=== PATIENT | female | born 1950 | race Caucasian/White ===

== ENCOUNTER 2017-12-03 07:22 | Emergency (ER) | payer MEDICARE, BC ==
[~2017-12-03] VITALS: Ht 167.6 cm; Wt 67.0 kg
[~2017-12-03 07:22] MED LIST: ATOR10TA PO; COQ-100C2 PO; CYCL1PAK PO; FLUTI110I TOP; TRAM50TA PO
[2017-12-03 07:26] VITALS: BP 150/73; PULSE 78; RESP 16; TEMP 97.2; O2SAT 99
[2017-12-03] MEDS ORDERED: UBID30CA2 PO (08:03)
[2017-12-03] MEDS ORDERED: ATOR10TA15 PO (08:03)
[2017-12-03] MEDS ORDERED: macuguard PO (08:03)
--- NOTE | 2017-12-03 08:05 | PD ---
HPI Chief Complaint: Allergic/Adverse Reaction Time Seen by Provider: 07:52 Travel History International Travel<30 days: No Contact w/Intl Traveler<30days: No Traveled to known affect area: No History of Present Illness HPI Patient is a 67-year-old female who was treated outside clinic for bronchitis and is on day 4 of 5 of prednisone course, she states she is feeling quite jittery and anxious and starting the medication and she feels numbness and tingling in all of her extremities when this happens as well, states she's never had this prior to starting the prednisone and thinks that the prednisone is causing the have the symptoms. Denies any chest pain shortness breath abdominal pain cough congestion nausea vomiting diarrhea or extremity weakness. Symptoms for the past 4 days, context as above, gradually worsening, associated signs symptoms as above. PFSH Past Medical History High Cholesterol: Yes Medical other: Yes ("macular hole") Tetanus Vaccination: < 5 Years Influenza Vaccination: Yes Menopausal: Yes Tubal Ligation: Yes Past Surgical History Other Surgery: Yes (R. & L. LEG VEIN CLOSURE) Social History Alcohol Use: Yes (SOCIALLY) Tobacco Use: No Substance Use: No Allergies-Medications (Allergen,Severity, Reaction): Coded Allergies: No Known Allergies (Unverified Adverse Reaction, Unknown, 12/03/17) Reported Meds & Prescriptions Reported Meds & Active Scripts Active Reported [macuguard] 1 Tab PO DAILY Coenzyme Q-10 (Ubidecarenone) 30 Mg Capsule 100 Mg PO DAILY Atorvastatin (Atorvastatin Calcium) 10 Mg Tab 10 Mg PO HS Review of Systems Except as stated in HPI: all other systems reviewed are Neg Physical Exam Narrative GENERAL: Well-developed well-nourished no obvious distress SKIN: Focused skin assessment warm/dry. HEAD: Atraumatic. Normocephalic. EYES: Pupils equal and round. No scleral icterus. No injection or drainage. ENT: No nasal bleeding or discharge. Mucous membranes pink and moist. NECK: Trachea midline. No JVD. CARDIOVASCULAR: Regular rate and rhythm. No murmur appreciated. RESPIRATORY: No accessory muscle use. Clear to auscultation. Breath sounds equal bilaterally. GASTROINTESTINAL: Abdomen soft, non-tender, nondistended. Hepatic and splenic margins not palpable. MUSCULOSKELETAL: No obvious deformities. No clubbing. No cyanosis. No edema. NEUROLOGICAL: Awake and alert. No obvious cranial nerve deficits. Motor grossly within normal limits. Normal speech. PSYCHIATRIC: Appropriate mood and affect; insight and judgment normal. Data Data Last Documented VS Vital Signs Date Time Temp Pulse Resp B/P (MAP) Pulse Ox O2 Delivery O2 Flow Rate FiO2 12/03/17 09:17 80 18 148/83 (104) 12/03/17 09:00 100 Room Air 12/03/17 07:26 97.2 Orders Orders Basic Metabolic Panel (Bmp) (12/03/17 08:04) Complete Blood Count With Diff (12/03/17 08:04) Oximetry (12/03/17 08:04) Sodium Chloride 0.9% Flush (Ns Flush) (12/03/17 08:15) Lorazepam (Ativan) (12/03/17 08:15) Ed Discharge Order (12/03/17 08:43) Labs Laboratory Tests Test 12/03/17 08:17 White Blood Count 7.1 TH/MM3 Red Blood Count 4.50 MIL/MM3 Hemoglobin 13.0 GM/DL Hematocrit 39.6 % Mean Corpuscular Volume 88.0 FL Mean Corpuscular Hemoglobin 28.9 PG Mean Corpuscular Hemoglobin Concent 32.8 % Red Cell Distribution Width 11.4 % Platelet Count 243 TH/MM3 Mean Platelet Volume 8.1 FL Neutrophils (%) (Auto) 52.7 % Lymphocytes (%) (Auto) 36.1 % Monocytes (%) (Auto) 10.8 % Eosinophils (%) (Auto) 0.2 % Basophils (%) (Auto) 0.2 % Neutrophils # (Auto) 3.7 TH/MM3 Lymphocytes # (Auto) 2.6 TH/MM3 Monocytes # (Auto) 0.8 TH/MM3 Eosinophils # (Auto) 0.0 TH/MM3 Basophils # (Auto) 0.0 TH/MM3 CBC Comment DIFF FINAL Differential Comment Blood Urea Nitrogen 13 MG/DL Creatinine 0.73 MG/DL Random Glucose 92 MG/DL Calcium Level 9.1 MG/DL Sodium Level 141 MEQ/L Potassium Level 3.3 MEQ/L Chloride Level 107 MEQ/L Carbon Dioxide Level 28.0 MEQ/L Anion Gap 6 MEQ/L Estimat Glomerular Filtration Rate 79 ML/MIN MDM Medical Decision Making Medical Screen Exam Complete: Yes Emergency Medical Condition: Yes Differential Diagnosis Medication reaction, electrolyte abnormality, acute intracranial intrathoracic or intra-abdominal pathology highly unlikely, metabolic derangement. Narrative Course Patient roomed in emergency Department with fairly classic steroid adverse reaction/side effect. Patient workup in the emergency department done at her request, is negative. Discussed need for follow-up the primary care physician, she is stable for discharge and no indication further workup at this time. She was given Ativan in the emergency department and this seemed to thao her symptoms. Diagnosis Primary Impression: Medication adverse effect Qualified Codes: T88.7XXA - Unspecified adverse effect of drug or medicament, initial encounter Additional Instructions: Discontinue prednisone. It is ok to stop this medication today without a taper. Disposition: 01 DISCHARGE HOME Condition: Stable Parish Stein MD Dec 03, 2017 08:05
[2017-12-03] MEDS ORDERED: SODIUM CHLORIDE 0.9% FLUSH 10 ML FLUSH IV FLUSH PRN (08:15)
[2017-12-03] MEDS ORDERED: LORazepam 1 MG TAB PO ONE (08:15)
[2017-12-03 08:25] LABS: AUTOMATED NEUTROPHIL # 3.7 TH/MM3 (1.8-7.7); BASOPHIL % 0.2 % (0.0-2.0); EOSINOPHIL % 0.2 % (0.0-4.0); HEMATOCRIT 39.6 % (35.0-46.0); LYMPH % 36.1 % (9.0-44.0); LYMPHOCYTE # 2.6 TH/MM3 (1.0-4.8); MEAN CORPUSCULAR HEMOGLOBIN 28.9 PG (27.0-34.0); MEAN CORPUSCULAR HGB CONC 32.8 % (32.0-36.0); MEAN PLATELET VOLUME 8.1 FL (7.0-11.0); MONO % 10.8 % (0.0-8.0); MONOCYTE # 0.8 TH/MM3 (0-0.9); NEUT % 52.7 % (16.0-70.0); PLATELET COUNT 243 TH/MM3 (150-450); RED CELL DISTRIBUTION WIDTH 11.4 % (11.6-17.2); WHITE BLOOD COUNT 7.1 TH/MM3 (4.0-11.0)
[2017-12-03 08:35] LABS: CALCIUM 9.1 MG/DL (8.5-10.1)
[2017-12-03 08:39] LABS: CREATININE 0.73 MG/DL (0.50-1.00)
[2017-12-03 09:00] VITALS: O2SAT 100
[2017-12-03 09:17] VITALS: BP 148/83
== END 2017-12-03 09:26 | disposition home or self-care (01) ==
LOC: PHED 07:22
DX: F41.9 Anxiety disorder, unspecified (principal); T38.0X5A Adverse effect of glucocorticoids and synthetic analogues, initial encounter; E78.00 Pure hypercholesterolemia, unspecified; Z79.899 Other long term (current) drug therapy
CPT/HCPCS: 80048; 85025; 99283

== ENCOUNTER 2017-12-06 10:01 | Emergency (ER) | payer MEDICARE, BC ==
[~2017-12-06] VITALS: Ht 167.6 cm; Wt 66.1 kg
[~2017-12-06 10:01] MED LIST changes: -ATOR10TA PO; +ATOR10TA15 PO; -COQ-100C2 PO; -CYCL1PAK PO; -FLUTI110I TOP; -TRAM50TA PO; +UBID30CA2 PO; +macuguard PO
[2017-12-06 10:04] VITALS: BP 149/86; PULSE 89; RESP 16; TEMP 97.8; O2SAT 99
[2017-12-06 10:18] VITALS: BP 133/98; PULSE 90; RESP 18; O2SAT 98
[2017-12-06 10:43] VITALS: O2SAT 98
[2017-12-06] MEDS ORDERED: ONDANSETRON HCL 4 MG/2 ML VIAL IVP ONE (10:45)
[2017-12-06] MEDS ORDERED: ATROPINE/SCOPOLAM/HYOSCYAM/PB ELIXIR 10 ML CUP PO ONE (10:45)
[2017-12-06] MEDS ORDERED: FAMOTIDINE 20 MG/2 ML VIAL IV PUSH ONE (10:45)
[2017-12-06] MEDS ORDERED: ALUMINUM/MAGNESIUM/SIMETH 30 ML CUP PO ONE (10:45)
--- NOTE | 2017-12-06 10:49 | PD ---
HPI Chief Complaint: General Weakness Time Seen by Provider: 10:29 Travel History International Travel<30 days: No Contact w/Intl Traveler<30days: No Traveled to known affect area: No History of Present Illness HPI 67-year-old female complains of epigastric discomfort and reflux symptom and generalized malaise and weakness and nausea. Patient states that she started having a cough about a week ago. Patient was seen at a local walk-in clinic and given prescription for prednisone. Patient took prednisone for 4 days and started having epigastric discomfort and reflux symptom and nausea. Patient was seen in emergency room 3 days ago and advised to stop prednisone. Patient states that she has persistent symptoms despite stopping the medication. Patient states that she has mild dry cough now. Patient states that she tried Pepcid last night with some relief of the symptoms. Patient states that she feeling anxious. Patient denies any history of gastritis or peptic ulcer in the past. Patient denies any history of GERD. Patient denies any history of CAD. Patient denies history hypertension, diabetes. Patient has history of hyperlipidemia. Patient is a nonsmoker. PFSH Past Medical History Hx Anticoagulant Therapy: No Cardiovascular Problems: Yes (CHOL) High Cholesterol: Yes Diabetes: No ?: Not Menopausal: Yes Tubal Ligation: Yes Past Surgical History Other Surgery: Yes (R. & L. LEG VEIN CLOSURE) Social History Alcohol Use: Yes (SOCIALLY) Tobacco Use: No Substance Use: No Allergies-Medications (Allergen,Severity, Reaction): Coded Allergies: No Known Allergies (Unverified Adverse Reaction, Unknown, 12/06/17) Reported Meds & Prescriptions Reported Meds & Active Scripts Active Reported [macuguard] 1 Tab PO DAILY Coenzyme Q-10 (Ubidecarenone) 30 Mg Capsule 100 Mg PO DAILY Atorvastatin (Atorvastatin Calcium) 10 Mg Tab 10 Mg PO HS Review of Systems General / Constitutional: No: Fever Eyes: No: Visual changes HENT: No: Headaches Cardiovascular: No: Chest Pain or Discomfort Respiratory: No: Shortness of Breath Gastrointestinal: Positive: Nausea, No: Abdominal Pain Genitourinary: No: Dysuria Musculoskeletal: No: Pain Skin: No Rash Neurologic: No: Weakness Psychiatric: No: Depression Endocrine: No: Polydipsia Hematologic/Lymphatic: No: Easy Bruising Physical Exam Narrative GENERAL: Well-nourished, well-developed patient. SKIN: Focused skin assessment warm/dry. HEAD: Normocephalic. EYES: No scleral icterus. No injection or drainage. NECK: Supple, trachea midline. No JVD or lymphadenopathy. CARDIOVASCULAR: Regular rate and rhythm without murmurs, gallops, or rubs. RESPIRATORY: Breath sounds equal bilaterally. No accessory muscle use. GASTROINTESTINAL: Abdomen soft, nondistended. Patient has mild tenderness on palpation epigastric area. No rebound tenderness. No mass. MUSCULOSKELETAL: No cyanosis, or edema. BACK: Nontender without obvious deformity. No CVA tenderness. Neurologic exam normal. Data Data Last Documented VS Vital Signs Date Time Temp Pulse Resp B/P (MAP) Pulse Ox O2 Delivery O2 Flow Rate FiO2 12/06/17 11:40 84 18 131/90 (104) 99 Room Air 12/06/17 10:04 97.8 Orders Orders Electrocardiogram (12/06/17 10:38) Complete Blood Count With Diff (12/06/17 10:38) Comprehensive Metabolic Panel (12/06/17 10:38) Creatine Kinase (Cpk) (12/06/17 10:38) Troponin I (12/06/17 10:38) Prothrombin Time / Inr (Pt) (12/06/17 10:38) Act Partial Throm Time (Ptt) (12/06/17 10:38) Lipase (12/06/17 10:38) Urinalysis - C+S If Indicated (12/06/17 10:38) Chest, Single Ap (12/06/17 10:38) Us Abdomen Gallbladder (12/06/17 10:38) Iv Access Insert/Monitor (12/06/17 10:38) Ecg Monitoring (12/06/17 10:38) Oximetry (12/06/17 10:38) Ondansetron Inj (Zofran Inj) (12/06/17 10:45) Famotidine Inj (Pepcid Inj) (12/06/17 10:45) Al-Mag Hy-Si 40-40-4 Mg/Ml Liq (Mag-Al P (12/06/17 10:45) Lpgtp-Hglvqh-Gkxjlw-Pb Liq ( Liq (12/06/17 10:45) Labs Laboratory Tests Test 12/06/17 10:46 12/06/17 10:48 White Blood Count 9.6 TH/MM3 Red Blood Count 4.94 MIL/MM3 Hemoglobin 14.1 GM/DL Hematocrit 43.2 % Mean Corpuscular Volume 87.6 FL Mean Corpuscular Hemoglobin 28.6 PG Mean Corpuscular Hemoglobin Concent 32.6 % Red Cell Distribution Width 11.4 % Platelet Count 335 TH/MM3 Mean Platelet Volume 8.1 FL Neutrophils (%) (Auto) 69.5 % Lymphocytes (%) (Auto) 23.5 % Monocytes (%) (Auto) 6.0 % Eosinophils (%) (Auto) 0.7 % Basophils (%) (Auto) 0.3 % Neutrophils # (Auto) 6.6 TH/MM3 Lymphocytes # (Auto) 2.3 TH/MM3 Monocytes # (Auto) 0.6 TH/MM3 Eosinophils # (Auto) 0.1 TH/MM3 Basophils # (Auto) 0.0 TH/MM3 CBC Comment DIFF FINAL Differential Comment Prothrombin Time 10.2 SEC Prothromb Time International Ratio 1.0 RATIO Activated Partial Thromboplast Time 22.6 SEC Blood Urea Nitrogen 15 MG/DL Creatinine 0.73 MG/DL Random Glucose 111 MG/DL Total Protein 7.5 GM/DL Albumin 3.7 GM/DL Calcium Level 9.6 MG/DL Alkaline Phosphatase 144 U/L Aspartate Amino Transf (AST/SGOT) 35 U/L Alanine Aminotransferase (ALT/SGPT) 44 U/L Total Bilirubin 0.6 MG/DL Sodium Level 139 MEQ/L Potassium Level 3.7 MEQ/L Chloride Level 105 MEQ/L Carbon Dioxide Level 26.0 MEQ/L Anion Gap 8 MEQ/L Estimat Glomerular Filtration Rate 79 ML/MIN Total Creatine Kinase 37 U/L Troponin I LESS THAN 0.02 NG/ML Lipase 152 U/L Urine Collection Type CLEAN CATCH Urine Color YELLOW Urine Turbidity CLEAR Urine pH 7.5 Urine Specific [place] 1.008 Urine Protein NEG mg/dL Urine Glucose (UA) NEG mg/dL Urine Ketones NEG mg/dL Urine Occult Blood NEG Urine Nitrite NEG Urine Bilirubin NEG Urine Leukocyte Esterase NEG Urine Squamous Epithelial Cells 0-5 /hpf Urine Amorphous Sediment FEW Microscopic Urinalysis Comment CULT NOT INDICATED MDM Medical Decision Making Medical Screen Exam Complete: Yes Emergency Medical Condition: Yes Interpretation(s) Last Impressions Gall Bladder Ultrasound 12/06/17 1038 Signed Impressions: Service Date/Time: Wednesday, December 06, 2017 11:05 - CONCLUSION: 1. Small appearing gallbladder wall polyp with no evidence of cholelithiasis. 2. Mild pyelocaliectasis of the right kidney with no definite hydronephrosis. Braden Alonzo MD Chest X-Ray 12/06/17 1038 Signed Impressions: Service Date/Time: Wednesday, December 06, 2017 10:59 - CONCLUSION: No acute disease. Braden Alonzo MD 12:01 PM. CBC within normal limit. CMP within normal limit. Cardiac enzymes are normal. UA is negative. Differential Diagnosis Differential diagnosis including gastritis, PUD, pancreatitis, cholecystitis, colitis, UTI, pyelonephritis, angina, MO, PE, pneumothorax. Narrative Course 67-year-old female with epigastric discomfort and generalized malaise and nausea. patient recently taken prednisone for bronchitis. Diagnosis Primary Impression: Gastritis Qualified Codes: K29.00 - Acute gastritis without bleeding Patient Instructions: General Instructions Additional Instructions: Take medications as directed. Follow-up with personal physician and gastric urologist. Return if persistent problem or worse. Med/Other Pt SpecificInfo: Prescription(s) given Scripts Dicyclomine (Bentyl) 10 Mg Cap 10 MG PO TID Y for Bowel Management, #21 CAP 0 Refills Prov: Corky Patrick MD 12/06/17 Sucralfate (Carafate) 1 Gram Tab 1 GM PO QID for Ulcer Prevention, #120 TAB 0 Refills On empty stomach Prov: Corky Patrick MD 12/06/17 Pantoprazole (Protonix) 40 Mg Tab 40 MG PO DAILY for Reflux, #30 TAB 0 Refills Prov: Corky Patrick MD 12/06/17 Disposition: DISCHARGE HOME Condition: Stable Corky Patrick MD Dec 06, 2017 10:49
[2017-12-06 11:09] LABS: BILIRUBIN, URINE NEG (NEG); BLOOD, URINE NEG (NEG); GLUCOSE,URINE NEG (NEG); KETONE, URINE NEG (NEG); NITRITE,URINE NEG (NEG); PH, URINE 7.5 (5.0-8.5); URINE LEUKOCYTE ESTERASE NEG (NEG)
[2017-12-06 11:11] LABS: AMORPHOUS SEDIMENT, URINE FEW; SQUAMOUS EPITHELIAL CELL URINE 0-5 /hpf (0-5); URINE COLOR YELLOW (YELLW/STRAW)
[2017-12-06 11:11] LABS: AUTOMATED NEUTROPHIL # 6.6 TH/MM3 (1.8-7.7); BASOPHIL % 0.3 % (0.0-2.0); EOSINOPHIL # 0.1 TH/MM3 (0-0.4); EOSINOPHIL % 0.7 % (0.0-4.0); HEMATOCRIT 43.2 % (35.0-46.0); HEMOGLOBIN 14.1 GM/DL (11.6-15.3); LYMPH % 23.5 % (9.0-44.0); LYMPHOCYTE # 2.3 TH/MM3 (1.0-4.8); MEAN CELL VOLUME 87.6 FL (80.0-100.0); MEAN CORPUSCULAR HEMOGLOBIN 28.6 PG (27.0-34.0); MEAN CORPUSCULAR HGB CONC 32.6 % (32.0-36.0); MEAN PLATELET VOLUME 8.1 FL (7.0-11.0); MONOCYTE # 0.6 TH/MM3 (0-0.9); NEUT % 69.5 % (16.0-70.0); PLATELET COUNT 335 TH/MM3 (150-450); RED BLOOD COUNT 4.94 MIL/MM3 (4.00-5.30); RED CELL DISTRIBUTION WIDTH 11.4 % (11.6-17.2); WHITE BLOOD COUNT 9.6 TH/MM3 (4.0-11.0)
[2017-12-06 11:13] LABS: CHLORIDE 105 MEQ/L (98-107); SODIUM (NA) 139 MEQ/L (136-145)
[2017-12-06 11:16] LABS: CALCIUM 9.6 MG/DL (8.5-10.1)
--- NOTE | 2017-12-06 11:16 | RADRPT ---
EXAM DATE/TIME: 12/06/2017 10:59 [facility] COMPARISON: No previous studies available for comparison. INDICATIONS : Chest pressure, short of breath. MEDICAL HISTORY : None. SURGICAL HISTORY : None. ENCOUNTER: Initial ACUITY: 3 days PAIN SCORE: 1/10 LOCATION: Bilateral chest FINDINGS: A single view of the chest demonstrates the lungs to be symmetrically aerated without evidence of mas s, infiltrate or effusion. The cardiomediastinal contours are unremarkable. Osseous structures are intact. CONCLUSION: No acute disease. Braden Alonzo MD on December 06, 2017 at 11:13 Board Certified Radiologist. This report was verified electronically.
[2017-12-06 11:17] LABS: ALBUMIN 3.7 GM/DL (3.4-5.0); BLOOD UREA NITROGEN 15 MG/DL (7-18); GLUCOSE,RANDOM 111 MG/DL (74-106)
[2017-12-06 11:18] LABS: PROTHROMBIN TIME - PATIENT 10.2 SEC (9.8-11.6)
[2017-12-06 11:20] LABS: ALT (GPT) 44 U/L (10-53); AST (GOT) 35 U/L (15-37); CREATININE 0.73 MG/DL (0.50-1.00); GLOMERULAR FILTRATION RATE 79 ML/MIN (>89)
[2017-12-06 11:21] LABS: TOTAL BILIRUBIN ADULT 0.6 MG/DL (0.2-1.0); TOTAL PROTEIN 7.5 GM/DL (6.4-8.2)
[2017-12-06 11:23] LABS: ALKALINE PHOSPHATASE 144 U/L (45-117)
[2017-12-06 11:25] LABS: TROPONIN I LESS THAN 0.02 NG/ML (0.02-0.05)
[2017-12-06 11:40] VITALS: BP 131/90; PULSE 84; RESP 18; O2SAT 99
--- NOTE | 2017-12-06 11:40 | RADRPT ---
EXAM DATE/TIME: 12/06/2017 11:05 [facility] COMPARISON: No previous studies available for comparison. INDICATIONS : Nausea and vomiting. MEDICAL HISTORY : Hypercholesterolemia. SURGICAL HISTORY : Tubal ligation. Bilateral leg vein surgery. ENCOUNTER: Initial ACUITY: 4-6 days PAIN SCORE: 0/10 LOCATION: Right upper quadrant MEASUREMENTS: LIVER: 13.0 cm length COMMON DUCT: 5 mm RIGHT KIDNEY: 9.8 x 4.4 x 4.5 cm FINDINGS: LIVER: Normal echotexture without focal lesion or ductal dilatation. COMMON DUCT: No intraluminal mass or stone visualized. GALLBLADDER: Contains no stones, demonstrates no wall thickening or pericholecystic fluid. There is a small echog enic polyp measuring 2-3 mm which did not move or shadow. PANCREAS: The visualized portions are within normal limits. RIGHT KIDNEY: No evidence of hydronephrosis, stone, or mass. There is mild pyelocaliectasis. CONCLUSION: 1. Small appearing gallbladder wall polyp with no evidence of cholelithiasis. 2. Mild pyelocaliectasis of the right kidney with no definite hydronephrosis. Braden Alonzo MD on December 06, 2017 at 11:35 Board Certified Radiologist. This report was verified electronically.
[2017-12-06] MEDS ORDERED: DICY10 PO (12:06)
[2017-12-06] MEDS ORDERED: PROT40TA PO (12:06)
[2017-12-06] MEDS ORDERED: CARA1TAB6 PO (12:06)
--- NOTE | 2017-12-06 19:38 | EKG ---
Date Performed: 12/06/2017 Time Performed: 10:48:04 PTAGE: 67 years EKG: Sinus rhythm NORMAL ECG Since the prior tracing, there has been no significant change PREVIOUS TRACING : 12/02/2014 21.18 DOCTOR: Nathen Campbell Interpretating Date/Time 12/06/2017 19:36:04
== END 2017-12-06 12:28 | disposition home or self-care (01) ==
LOC: PHED 10:01
DX: K29.00 Acute gastritis without bleeding (principal); E78.00 Pure hypercholesterolemia, unspecified; Z79.899 Other long term (current) drug therapy
CPT/HCPCS: 71045; 76705; 80053; 81001; 82550; 83690; 84484; 85025; 85610; 85730; 93005; 96374; 96375; 99285; J2405